=== PATIENT | male | born 1945 | race Caucasian/White ===

== ENCOUNTER 2017-11-21 07:40 | Day surgery (SDC) ==
[2017-11-21] MEDS: BETADINE OPTH PREP OP PRN ×2 (08:44→09:40)
[2017-11-21] MEDS: TETRACAINE 0.5% UNIT-DOSE OP PRN ×2 (08:44→09:40)
[2017-11-21] MEDS: CYCLOGYL 2% OPTH OP PRN ×3 (08:45→08:55)
[2017-11-21] MEDS ORDERED: LIDOCAINE 1% 20 ML MDV ID STA (08:55)
[2017-11-21] MEDS ORDERED: BRIMONIDINE TARTRATE 0.2% OPTH SOL OP PRN (08:55)
[2017-11-21] MEDS ORDERED: DEX-MOXI-KETOR OPTH INJ 1/0.5/0.4 MG/ML IO ONE (08:55)
[2017-11-21] MEDS ORDERED: LIDOCAINE 1%/PHENYLEPHRINE 1.5% BSS (SURGERY) INTRAOCULA ONE (08:55)
[2017-11-21] MEDS ORDERED: ZOFRAN 4 MG/2 ML IVP ONE (08:55)
[2017-11-21] MEDS ORDERED: BSS WITH EPINEPHRINE OP ONE (08:55)
[2017-11-21 08:59] VITALS: TEMP 97.4
[2017-11-21] MEDS ORDERED: ZOFRAN 4 MG/2 ML ONE (09:44)
[2017-11-21] MEDS ORDERED: VERSED ONE (09:44)
[2017-11-21 12:55] VITALS: BP 124/56
== END 2017-11-21 10:25 | disposition home or self-care (01) ==
LOC: SURG 07:40
PROVIDERS: ATTEND Ophthalmology
DX: H25.11 Age-related nuclear cataract, right eye (principal)

== ENCOUNTER 2017-12-05 09:13 | Day surgery (SDC) ==
[2017-12-05] MEDS: BETADINE OPTH PREP OP PRN ×2 (10:55→11:40)
[2017-12-05] MEDS: TETRACAINE 0.5% UNIT-DOSE OP PRN ×2 (10:55→11:40)
[2017-12-05] MEDS: CYCLOGYL 2% OPTH OP PRN ×3 (10:56→11:06)
[2017-12-05] MEDS ORDERED: LIDOCAINE 1%/PHENYLEPHRINE 1.5% BSS (SURGERY) INTRAOCULA ONE (11:04)
[2017-12-05] MEDS ORDERED: BRIMONIDINE TARTRATE 0.2% OPTH SOL OP PRN (11:04)
[2017-12-05] MEDS ORDERED: DEX-MOXI-KETOR OPTH INJ 1/0.5/0.4 MG/ML IO ONE (11:04)
[2017-12-05] MEDS ORDERED: ZOFRAN 4 MG/2 ML IVP ONE (11:04)
[2017-12-05] MEDS ORDERED: BSS WITH EPINEPHRINE OP ONE (11:04)
[2017-12-05] MEDS ORDERED: LIDOCAINE 1% 20 ML MDV ID STA (11:04)
[2017-12-05] MEDS ORDERED: VERSED ONE (11:54)
[2017-12-05] MEDS ORDERED: ZOFRAN 4 MG/2 ML ONE (11:54)
[2017-12-05 13:49] VITALS: TEMP 98.3
[2017-12-05 15:34] VITALS: BP 118/67
== END 2017-12-05 12:40 | disposition home or self-care (01) ==
LOC: SURG 09:13
PROVIDERS: ATTEND Ophthalmology
DX: H25.12 Age-related nuclear cataract, left eye (principal)